=== PATIENT | male | born 1980 | race Caucasian/White ===

== ENCOUNTER 2021-06-25 08:08 | Day surgery (SDC) | payer MEDICAID ==
[~2021-06-25] VITALS: Ht 176.5 cm; Wt 154.5 kg
[~2021-06-25 08:08] MED LIST: SODIUM CHLORIDE 0.9% 1,000 ML ONE
[2021-06-25] MEDS ORDERED: OLAN20TA35 PO (08:35)
[2021-06-25] MEDS ORDERED: TIOT4MIS2 IH (08:35)
[2021-06-25] MEDS ORDERED: MONT-40 PO (08:35)
[2021-06-25] MEDS ORDERED: METF-1211 PO (08:35)
[2021-06-25] MEDS ORDERED: LITH300C3 PO (08:35)
[2021-06-25] MEDS ORDERED: MOME13HF PO (08:35)
[2021-06-25] MEDS ORDERED: TRAZ-252 PO (08:35)
[2021-06-25] MEDS ORDERED: HALO10TA12 PO (08:35)
[2021-06-25] MEDS ORDERED: GABA-1181 PO (08:35)
[2021-06-25] MEDS ORDERED: ALBU6.7H9 IH (08:35)
[2021-06-25] MEDS ORDERED: BENZ1TAB10 PO (08:35)
[2021-06-25] MEDS ORDERED: ATOR-2 PO (08:35)
[2021-06-25] MEDS ORDERED: BUSP30TA2 PO (08:35)
[2021-06-25] MEDS ORDERED: FAMO40TA7 PO (08:35)
[2021-06-25] MEDS ORDERED: TIOT185 IH (08:35)
[2021-06-25] MEDS ORDERED: MOME13HF2 IH (08:35)
[2021-06-25] MEDS ORDERED: VENL-67 PO (08:35)
[2021-06-25 08:52] LABS: COVID AG,FIA SOURCE NASOPHARYNGEAL
[2021-06-25] MEDS ORDERED: FentaNYL CITRATE PF 100 MCG/2 ML VIAL ONE (09:00)
[2021-06-25] MEDS ORDERED: MIDAZOLAM HCL 5 MG/ML VIAL ONE (09:01)
[2021-06-25] MEDS ORDERED: MethylPREDNISolone SOD SUCC 125 MG/2 ML VIAL IVP ONE (09:30)
[2021-06-25] MEDS ORDERED: MethylPREDNISolone SOD SUCC 125 MG/2 ML VIAL ONE (09:47)
[2021-06-25] MEDS ORDERED: SODIUM CHLORIDE 0.9% 1,000 ML IV ONE (10:00)
[2021-06-25] MEDS ORDERED: OXYGEN THERAPY IH SCH (20:00)
== END 2021-06-25 12:05 | disposition home or self-care (01) ==
LOC: SURGERY 08:08
PROVIDERS: ATTEND Internal Medicine Critical Care Medicine
DX: J38.4 Edema of larynx (principal); B37.0 Candidal stomatitis; Z79.899 Other long term (current) drug therapy; Z98.890 Other specified postprocedural states
CPT/HCPCS: 31623; 31624; 71045; 87015; 87070; 87101; 87205; 87206; 87220; 87426; 88108; 88184; 88185; 88312; C9803; J2250; J2930; J3010; J7030